=== PATIENT | male | born 1970 | race Hispanic/Latino ===

== ENCOUNTER 2022-11-07 12:23 | Emergency (ER) | payer OTHER ==
[~2022-11-07] VITALS: Ht 180.3 cm; Wt 118.8 kg
[2022-11-07 12:28] VITALS: BP 128/83
[2022-11-07] MEDS ORDERED: FLUT15.845 NS (14:36)
[2022-11-07] MEDS ORDERED: CETI10TA57 PO (14:36)
== END 2022-11-07 14:42 | disposition home or self-care (01) ==
LOC: EDH 12:23
DX: J30.2 Other seasonal allergic rhinitis (principal); Z88.1 Allergy status to other antibiotic agents; Z20.822 Contact with and (suspected) exposure to COVID-19
CPT/HCPCS: 99283; 87635; 87804 ×2; C9803

== ENCOUNTER 2025-01-06 14:01 | Emergency (ER) | payer BC, OTHER ==
[~2025-01-06] VITALS: Ht 180.3 cm; Wt 121.6 kg
[~2025-01-06 14:01] MED LIST: CETI10TA57 PO; FLUT15.845 NS
[2025-01-06 14:32] LABS: BASOPHILS # (AUTO) 0.06 K/uL (0.00-0.20); BASOPHILS % (AUTO) 0.7 % (0.0-5.0); EOSINOPHILS # (AUTO) 0.09 K/uL (0.00-0.70); EOSINOPHILS % (AUTO) 1.1 % (0.0-8.0); HEMATOCRIT 48.5 % (42-54); IMMATURE GRANULOCYTE ABSOLUTE 0.05 K/uL (0-1); LYMPHOCYTES # (AUTO) 2.2 K/uL (1.0-4.8); LYMPHOCYTES % (AUTO) 26.9 % (21.0-51.0); MEAN CORPUSCULAR HEMOGLOBIN 29.8 pg (27.0-33.0); MEAN CORPUSCULAR HGB CONC 34.8 g/dL (32.0-36.0); MEAN CORPUSCULAR VOLUME 85.5 fL (79-99); MONOCYTES # (AUTO) 0.6 K/uL (0.1-1.0); MONOCYTES % (AUTO) 6.8 % (3.0-13.0); NEUTROPHILS # (AUTO) 5.3 K/uL (1.8-7.7); NEUTROPHILS % (AUTO) 63.9 % (40.0-77.0); PLATELET COUNT (AUTO) 203 K/uL (130-400); RED BLOOD CELL COUNT(AUTO) 5.67 MIL/uL (4.50-6.20); RED CELL DISTRIBUTION WIDTH 13.9 % (11.0-15.5); WHITE BLOOD COUNT (AUTO) 8.3 K/uL (4.8-10.8)
[2025-01-06 14:38] LABS: ADD UA MICROSCOPIC YES; APPEARANCE,URINE TURBID (CLEAR); BILIRUBIN,URINE NEGATIVE (NEGATIVE); COLOR,URINE DARK-BROWN (YELLOW); GLUCOSE, URINE (UA) NEGATIVE (NEGATIVE); KETONES,URINE 5 mg/dL (NEGATIVE); LEUKOCYTE ESTERASE ,URINE 25 Leu/uL (NEGATIVE); NITRATE,URINE NEGATIVE (NEGATIVE); OCCULT BLOOD,URINE LARGE (NEGATIVE); PH,URINE 5.5 (5.0-8.0); PROTEIN,URINE 70 mg/dL (NEGATIVE); UROBILINOGEN,URINE 0.2 mg/dL (0.2-1.0)
[2025-01-06 14:40] LABS: MUCUS,URINE RARE LPF (None Seen); RBC,URINE TNTC /HPF (0-1); WBC CLUMP MANY /HPF (0-1); WBC,URINE TNTC /HPF (0-1)
[2025-01-06 14:41] LABS: CREATININE 1.2 mg/dL (0.5-1.3); POTASSIUM 3.8 mmol/L (3.5-5.1)
--- NOTE | 2025-01-06 17:13 | HMCIMG ---
CT ABDOMEN WITHOUT CONTRAST. CT PELVIS WITHOUT CONTRAST. INDICATION: Gross hematuria TECHNIQUE: Routine transaxial imaging using 5 mm slice thickness through the abdomen and pelvis without the administration of IV contrast. Thin slice reconstructions are also provided. Coronal and sagittal reformatted images acquired for interpretation. CT was performed with one or more of the following dose reduction techniques: Automated exposure control, adjustment of the mA and/or kV according to patient size, or use of iterative reconstruction technique. COMPARISON: None FINDINGS: ON NONCONTRAST IMAGING: ABDOMEN: Heart size is normal. 6 mm nodule at the posterior left lower lobe margin. No abnormal renal calcifications, hydronephrosis, perinephric inflammation, or proximal hydroureter detected. The liver is normal in size and smooth in contour without biliary duct dilation. The spleen is normal in size and attenuation. The gallbladder appears normal. The pancreas appears normal without pancreatic duct dilation. The adrenal glands appear normal. No significant abdominal, retrocrural or retroperitoneal adenopathy noted. No evidence for intra-abdominal free air or organized fluid collection. No aortic aneurysmal dilation identified. PELVIS: No abnormal calcifications within the urinary bladder or distal ureters. No evidence for free air or organized pelvic fluid collection. No significant pelvic adenopathy detected. Visualized small and large bowel loops appear unremarkable. Terminal ileum appears unremarkable. The appendix appears normal. Visible osseous structures are intact. IMPRESSION: 6 mm posterior left upper lower lobe nodule. Please see below for recommendations. No evidence for urolithiasis. 2017 Guidelines for Management of Incidental Pulmonary Nodules Detected on CT images: Fleischner Society (Radiology 2017). Single Nodule: LOW RISK PATIENT: <6 mm: No follow-up required. 6-8 mm: Follow-up CT at 6-12 months, then CT at 18-24 months. >8 mm: Consider follow-up CT at 3 months, PET/CT , or tissue sampling. HIGH RISK PATIENT: <6 mm: Optional CT at 12 months. (Certain patients at high risk with suspicious nodule morphology, upper lobe location, or both may warrant 12 month follow-up). 6-8 mm: Follow-up CT at 6-12 months, then CT at 18-24 months. >8 mm: Consider follow-up CT at 3 months, PET/CT , or tissue sampling.
[2025-01-06] MEDS ORDERED: CEFP200T14 PO (17:48)
--- NOTE | 2025-01-06 17:50 | ERN ---
General Chief Complaint: Blood in Urine: Stated Complaint: URINATING BLOOD Time Seen by MD: 14:01 Time Seen by Midlevel: 14:01 Source: patient History of Present Illness Initial Comments The patient is a 54-year-old male with no significant past medical history presenting to the emergency department for evaluation of hematuria. Patient states his symptoms started a proximally two weeks ago. He was seen at a local urgent care where he was diagnosed with a urinary tract infection and discharged home on ciprofloxacin. He finished his antibiotic course but states his symptoms return today. He does admit to dysuria and hematuria. Denies being sexually active and states he has no concern for a sexually transmitted disease at this time. Otherwise the patient has no other complaints. Allergies: Coded Allergies: amoxicillin (Unverified Allergy, Unknown, 11/07/22) Home Meds Active Scripts Cefpodoxime Proxetil (Cefpodoxime Proxetil) 200 Mg Tablet, 1 TAB PO BID for 10 Days, #20 TAB 0 Refills Prov:ARIANNA LEE 01/06/25 Fluticasone Propionate (Fluticasone Propionate) 15.8 Ml [place].susp, 15.8 ML NS BID, #1 BOTTLE Prov:FITTINGANTIONETTE 11/07/22 Cetirizine HCl (Cetirizine HCl) 10 Mg Tablet, 10 MG PO DAILY, #30 TAB Prov:FITTINGANTIONETTE 11/07/22 Past Medical History Past Medical History: No Pertinent History Past Surgical History: None ROS Dictation CONSTITUTIONAL: Negative except for HPI HEAD/FACE: Negative except for HPI EENT: Negative except for HPI RESPIRATORY: Negative except for HPI GASTROINTESTINAL/ABDOMINAL: Negative except for HPI GENITOURINARY: Negative except for HPI MUSCULOSKELETAL: Negative except for HPI INTEGUMENTARY: Negative except for HPI NEUROLOGICAL/PSYCH: Negative except for HPI HEMATOLOGIC/LYMPHATIC: Negative except for HPI All Systems Negative, Except as noted above. 13 point review of systems assessed and all negative except for above. Physical Exam Physical Exam Dictation Vital Signs reviewed General Appearance: Alert, oriented x 3, no acute distress, well developed, nourished. Head and Face: non-traumatic. Eyes: PERRL, pink conjunctivas, eyelid no trauma, anterior chamber with arcus senilis. Ears: Pinnas intact and no signs of trauma or erythema ear canals clear and no discharge TM no erythema Nose: No discharge, no bleeding. Oropharynx: Mouth normal, tongue pink, pharynx clear,no erythema, tonsils no exudates, no abscesses noted, mucous membrane moist Neck: Supple, non-tender, no thyromegaly, no masses, no JVD, no bruits Breast:Deferred Chest:No tenderness, no crepitus, no paradoxical movement, no retractions Lungs:Clear, well-ventilated, symmetric, no rales, no wheezing, no rhonchi, no stridor, good breath sounds bilaterally Heart: Regular rate, regular rhythm, no murmur, no gallops Vascular: no peripheral edema, Abdomen: Soft, positive bowel sounds, nondistended, no guarding, nontender, no rebound, no masses no hepatomegaly, no splenomegaly, no Joshua's sign, no hernias. Rectal: Deferred Genital: Deferred Neurological: Normal speech, motor function intact, sensory function intact Musculoskeletal: Neck nontender, full range of motion, back nontender, full range of motion, Extremities: nontender, full range of motion Skin: Color pink, dry, no turgor, no rash, no lacerations, no abrasions, no contusions. Lymphatic: Deferred Results Laboratory and Microbiology Lab and Micro Result Laboratory Tests Test 01/06/25 14:20 01/06/25 14:24 Urine Color DARK-BROWN (YELLOW) Urine Appearance TURBID (CLEAR) Urine pH 5.5 (5.0-8.0) Urine Specific [place] 1.028 (1.001-1.031) Urine Protein 70 mg/dL (NEGATIVE) H Urine Glucose (UA) NEGATIVE mg/dL (NEGATIVE) Urine Ketones 5 mg/dL (NEGATIVE) H Urine Occult Blood LARGE (NEGATIVE) H Urine Nitrate NEGATIVE (NEGATIVE) Urine Bilirubin NEGATIVE mg/dL (NEGATIVE) Urine Urobilinogen 0.2 mg/dL (0.2-1.0) Urine Leukocyte Esterase 25 Cipriano/uL (NEGATIVE) H Urine RBC TNTC /HPF (0-1) H Urine WBC TNTC /HPF (0-1) H Urine WBC Clumps (Auto) MANY /HPF (0-1) Urine Bacteria None /HPF (None Seen) Urine Yeast NONE /HPF (None Seen) White Blood Count 8.3 K/uL (4.8-10.8) Red Blood Count 5.67 MIL/uL (4.50-6.20) Hemoglobin 16.9 g/dL (14.0-18.0) Hematocrit 48.5 % (42-54) Mean Corpuscular Volume 85.5 fL (79-99) Mean Corpuscular Hemoglobin 29.8 pg (27.0-33.0) Mean Corpuscular Hemoglobin Concent 34.8 g/dL (32.0-36.0) Red Cell Distribution Width 13.9 % (11.0-15.5) Platelet Count 203 K/uL (130-400) Mean Platelet Volume 10.7 fL (7.5-10.5) H Immature Granulocyte % (Auto) 0.6 % (0-1) Neutrophils (%) (Auto) 63.9 % (40.0-77.0) Lymphocytes (%) (Auto) 26.9 % (21.0-51.0) Monocytes (%) (Auto) 6.8 % (3.0-13.0) Eosinophils (%) (Auto) 1.1 % (0.0-8.0) Basophils (%) (Auto) 0.7 % (0.0-5.0) Neutrophils # (Auto) 5.3 K/uL (1.8-7.7) Lymphocytes # (Auto) 2.2 K/uL (1.0-4.8) Monocytes # (Auto) 0.6 K/uL (0.1-1.0) Eosinophils # (Auto) 0.09 K/uL (0.00-0.70) Basophils # (Auto) 0.06 K/uL (0.00-0.20) Absolute Immature Granulocyte (auto 0.05 K/uL (0-1) Nucleated Red Blood Cells 0.0 % (0.0-0.19) Sodium Level 140 mmol/L (136-145) Potassium Level 3.8 mmol/L (3.5-5.1) Chloride Level 105 mmol/L (101-111) Carbon Dioxide Level 25 mmol/L (21-32) Blood Urea Nitrogen 13 mg/dL (7-18) Creatinine 1.2 mg/dL (0.5-1.3) Glomerular Filtration Rate Calc 71 mL/min (>90) Random Glucose 145 mg/dL (70-105) H Total Calcium 9.3 mg/dL (8.5-10.1) Total Creatine Kinase 231 U/L (21-232) Labs Reviewed?: Yes MDM MDM: The patient is a 54-year-old male with no significant past medical history presenting to the emergency department for evaluation of hematuria. Patient states his symptoms started a proximally two weeks ago. He was seen at a local urgent care where he was diagnosed with a urinary tract infection and discharged home on ciprofloxacin. He finished his antibiotic course but states his symptoms return today. He does admit to dysuria and hematuria. Denies being sexually active and states he has no concern for a sexually transmitted disease at this time. Otherwise the patient has no other complaints. On physical examination the patient is in no acute distress. Initial vital signs are stable. CBC and chemistries were obtained. There was no anemia, thrombocytopenia, or leukocytosis. Chemistries are unremarkable. Renal function is normal. Urinalysis does show clumps of white blood cell count with trace leuk esterase. There is gross blood noted in the urinalysis. We will treat as a urinary tract infection. The patient does have an allergy to amoxicillin but we will give 1 g of ceftriaxone in the emergency department. He states his allergy is itchiness. A CT scan of the abdomen/pelvis was performed which reveals an incidental finding of a 6 mm posterior left upper lower lobe nodule. Otherwise his CT scan is unremarkable. The patient will need to follow up with Urology for further evaluation. Differential diagnosis: Bladder cancer, urinary tract infection, There are no social concerns with this patient. Prescription drug management Prescriptions will include: Medical management and examination interpretation discussions were had by me with other qualified healthcare professionals as indicated for the patient's care. ED Course Orders Procedure Category Date Status Time Cbc With Differential LAB 01/06/25 Complete 14:17 Basic Metabolic Panel LAB 01/06/25 Complete 14:17 Urinalysis Profile LAB 01/06/25 Complete 14:17 Culture Urine JIM 01/06/25 In Process 14:46 Creatine Kinase, Total LAB 01/06/25 Complete 16:35 Ct Abdomen/Pelvis W/O CT 01/06/25 Resulted Contrast 16:35 Ceftriaxone 1g Vial PHA 01/06/25 Complete (Rocephine 1g Inj) 18:00 Lidocaine Hcl 1% 20ml PHA 01/06/25 Complete Vial (Lidocaine Hc 18:01 Current Medications Medications (Trade) Dose Ordered Sig/Yesenia Route PRN Reason Start Time Stop Time Status Last Admin Dose Admin Ceftriaxone Sodium (ROCEphine 1G INJ) 1 gm ONCE ONCE IM 01/06/25 18:00 01/06/25 18:01 DC 01/06/25 18:04 Lidocaine HCl (Lidocaine HCl 1% 20ml Vial) 20 ml STK-MED ONCE .ROUTE 01/06/25 18:01 01/06/25 18:02 DC Vital Signs Date Time Temp Pulse Resp B/P (MAP) Pulse Ox O2 Delivery O2 Flow Rate FiO2 01/06/25 18:05 98.2 80 18 129/76 99 Room Air* 0 21 01/06/25 14:45 98.2 85 18 121/79 99 Room Air* 0 21 01/06/25 14:05 98.2 97 20 129/80 99 Room Air 0 DX & DISP Disposition: Discharge Departure Impression: Primary Impression: Urinary tract infection Additional Impression: Hematuria Condition: Stable Scripts Cefpodoxime Proxetil (Cefpodoxime Proxetil) 200 Mg Tablet 1 TAB PO BID for 10 Days, #20 TAB 0 Refills Prov: ARIANNA LEE 01/06/25 Additional Instructions: Your blood work today is unremarkable. You are not anemic. Your urinalysis shows evidence of white blood cells which could indicate an infection. There is also gross blood. You will need to follow up with the urologist for further evaluation. There was an incidental finding on your CAT scan that reveals a 6 mm left upper lower lobe nodule in your lungs. I would suggest you follow up with your primary care doctor for further evaluation. Referrals: SELF,REFERRAL (PCP) Time of Disposition: 17:43 I have reviewed the case, and I agree with, Diagnosis and Plan I performed the substantive portion of the visit. I have reviewed and pers onally made and approve the management plan that is documented in the note by myself or the PAULINO. I acknowledge for responsibility for the patient's management plan. ARIANNA LEE January 06, 2025 17:50 REG GHOSH DO January 07, 2025 08:00
[2025-01-06] MEDS: LIDOCAINE HCL 1% 20 ML VIAL ONE (18:04)
[2025-01-06] MEDS: cefTRIAXone 1G VIAL IM ONE (18:04)
[2025-01-06 18:05] VITALS: BP 129/76; PULSE 80; RESP 18; TEMP 98.2; O2SAT 99
== END 2025-01-06 18:19 | disposition home or self-care (01) ==
LOC: EDH 14:01
DX: N39.0 Urinary tract infection, site not specified (principal); R31.9 Hematuria, unspecified; Z88.0 Allergy status to penicillin
CPT/HCPCS: 99284; 74176; 82550; 80048; 85025; 87086; 81001; 36415; 96372; J0696